=== PATIENT | male | born 1975 | race Caucasian/White ===

== ENCOUNTER 2024-03-14 17:37 | Inpatient (IN) | payer OTHER, BC ==
[2024-03-14 18:38] VITALS: BMI 28.0
[2024-03-14] MEDS ORDERED: guaiFENesin 600 MG TABLET.ER (FP) PO PRN (19:15)
[2024-03-14] MEDS ORDERED: BENZOCAINE/MENTHOL (CHLORASEPTIC ) LOZENGE MM PRN (19:15)
[2024-03-14] MEDS ORDERED: MAG HYDROX/AL HYDROX/SIMETH 30 ML UNIT-DOSE CUP PO PRN (19:15)
[2024-03-14] MEDS ORDERED: BENZONATATE 200 MG CAPSULE PO PRN (19:15)
[2024-03-14] MEDS ORDERED: IBUPROFEN 400 MG TABLET (FP) PO PRN (19:15)
[2024-03-14] MEDS ORDERED: NICOTINE POLACRILEX 2 MG GUM BUC PRN (19:15)
[2024-03-14] MEDS ORDERED: NICOTINE POLACRILEX 2 MG LOZENGE BC PRN (19:15)
[2024-03-14] MEDS ORDERED: POLYETHYLENE GLYCOL (HEALTHYLAX) 3350 17 GM PACKET PO PRN (19:15)
[2024-03-14] MEDS ORDERED: LOPERAMIDE HCL 2 MG CAPSULE PO PRN (19:15)
[2024-03-14] MEDS ORDERED: MAGNESIUM HYDROX 2400MG/30ML ORAL SUSPENSION 30 ML CUP PO PRN (19:15)
[2024-03-14] MEDS ORDERED: ACETAMINOPHEN 325 MG TABLET (FP) PO PRN (19:15)
[2024-03-14] MEDS ORDERED: hydrOXYzine PAMOATE 25 MG CAPSULE (FP) PO PRN (19:15)
[2024-03-14] MEDS: TUBERCULIN PPD 5 TU/0.1ML SYRINGE (IN PATIENT USE ONLY) ID ONE (20:27)
[2024-03-14] MEDS: THIAMINE 100 MG TABLET PO SCH (21:18)
[2024-03-14] MEDS: MELATONIN 5 MG TABLETS PO SCH (21:19)
[2024-03-14] MEDS ORDERED: TUBERCULIN PPD 5 TU/0.1ML SYRINGE (IN PATIENT USE ONLY) ID ONE (23:16)
[2024-03-15] MEDS: LEVOTHYROXINE NA 112 MCG TABLET (FP) PO SCH (06:25)
[2024-03-15] MEDS: PRENATAL VITAMINS W/ FOLIC ACID TABLET (FP) PO SCH (09:15)
[2024-03-15 12:38] LABS: HEMATOCRIT 42.3 % (35.4-49); MCH 30.9 pg (25.7-33.7); MEAN CELL VOLUME 93.5 fl (80-96); MEAN PLT VOLUME 7.4 fl (7.5-11.1); PLATELET COUNT 284 10^3/uL (134-434); RBC 4.53 M/mm3 (4.00-5.60); RDW 13.9 % (11.9-15.9); WHITE BLOOD COUNT 7.6 K/mm3 (4.0-10.0)
[2024-03-15 13:08] LABS: CHLORIDE 106 mmol/L (98-107); POTASSIUM 4.1 mmol/L (3.5-5.1); SODIUM 139 mmol/L (136-145)
[2024-03-15 13:13] LABS: ANION GAP 3 mmol/L (4-13); CALCIUM 9.2 mg/dL (8.5-10.1); CO2 30 mmol/L (21-32); GLUCOSE,RANDOM 96 mg/dL (74-106)
[2024-03-15 13:14] LABS: ALBUMIN 3.7 g/dl (3.4-5.0); BLOOD UREA NITROGEN 14.5 mg/dL (7-18)
[2024-03-15 13:15] LABS: SGPT/ALT 30 U/L (13-61)
[2024-03-15 13:17] LABS: CREATININE 0.6 mg/dL (0.55-1.3); SGOT/AST 16 U/L (15-37)
[2024-03-15 13:18] LABS: TOT PROT 6.9 g/dl (6.4-8.2)
[2024-03-15 13:19] LABS: ALK PHOS 83 U/L (45-117)
[2024-03-15 13:21] LABS: BILIRUBIN,TOTAL 0.4 mg/dL (0.2-1)
[2024-03-15 18:15] LABS: PH,URINE 5.5 (5.0-8.0); URINE APPEARANCE CLEAR; URINE BILIRUBIN NEGATIVE (NEGATIVE); URINE COLOR YELLOW; URINE GLUCOSE (UA) NEGATIVE (NEGATIVE); URINE KETONE NEGATIVE (NEGATIVE); URINE LEUK ESTERASE NEGATIVE (NEGATIVE); URINE NITRITE NEGATIVE (NEGATIVE); URINE PROTEIN NEGATIVE (NEGATIVE); URINE UROBILINOGEN 0.2 mg/dL (0.2-1.0)
[2024-03-15] MEDS: OLANZapine 10 MG TABLET PO SCH (21:36)
[2024-03-15] MEDS: BACLOFEN 10 MG TABLET (FP) PO SCH (21:37)
[2024-03-15] MEDS: traZODone HCL 50 MG TABLET (FP) PO SCH (21:37)
[2024-03-15] MEDS: TOPIRAMATE 25 MG TABLET PO SCH (21:37)
[2024-03-16] MEDS: BACLOFEN 10 MG TABLET (FP) PO PRN (19:13)
[2024-03-18] MEDS: IBUPROFEN 600 MG TABLET (FP) PO PRN (13:18)
[2024-03-18] MEDS: BACLOFEN 10 MG TABLET (FP) PO PRN (21:08)
[2024-03-22 06:26] VITALS: RESP 16
[2024-03-25 06:52] VITALS: BP 109/63; PULSE 63; TEMP 97.5
== END 2024-03-25 09:47 | disposition home or self-care (01) | DRG 895 ==
LOC: YASAS 17:37 → Y3NR 19:49 → Y3E 03-15 09:53 → Y3NR 03-15 21:51 → Y3W 03-16 10:19
PROVIDERS: ADMIT Allergy & Immunology; ATTEND Psychiatry & Neurology Pain Medicine
PROC: HZ42ZZZ Group Counseling for Substance Abuse Treatment, Cognitive-Behavioral (ICD-10-PCS; principal; 2024-03-14)
DX: F10.20 Alcohol dependence, uncomplicated (principal); F17.210 Nicotine dependence, cigarettes, uncomplicated; F25.9 Schizoaffective disorder, unspecified; F39 Unspecified mood [affective] disorder; E03.9 Hypothyroidism, unspecified; M41.9 Scoliosis, unspecified; R73.03 Prediabetes
CPT/HCPCS: 36415; 80053; 80305; 80307; 81003; 82962; 85027; 86780; 87811; 93005; 93010; J0475